=== PATIENT | male | born 1970 | race Caucasian/White ===

== ENCOUNTER 2024-07-22 17:17 | Emergency (ER) | payer OTHER, SELFPAY ==
[2024-07-22 17:19] VITALS: BP 141/93
--- NOTE | 2024-07-22 17:52 | EDRN ---
Pt states pain and nausea noted in AM mostly after a BM since Thursday. Pain 5-6/10 when has it then gets the nausea. Pain is in epigastric area. Pt also feeling pulsation in stomach when pain starts and w/ exertion gets this pulsation like when going
up set of stairs, also when washing dishes. Pt states when doing dishes today he developed cramping in his back and then pain to epigastric area w/ nausea. Pt has not been eating much for past 4 days only doing BRAT diet and does not feel pain
correlates w/ eating. Pain is described as achy and tender. Pt is feeling tenderness at this time at 5/10. Pt took zofran this am that helped w/ nausea.
[2024-07-22 17:56] VITALS: BMI 27.5
[2024-07-22 18:15] VITALS: BP 133/79
--- NOTE | 2024-07-22 18:18 | EDRN ---
Domingo PEREZ in room w/pt at this time.
[2024-07-22 18:19] LABS: Urine Albumin Negative (Neg - Trace); Urine Bilirubin Negative (Negative); Urine Character Clear (Clear); Urine Color Yellow; Urine Glucose Negative (Negative); Urine Ketone Negative (Negative); Urine Leukocyte Negative (Negative); Urine Nitrite Negative (Negative); Urine Occult Blood Negative (Negative); Urine Specific Gravity 1.015 (<1.030); Urine Urobilinogen Negative (Neg - 1+)
[2024-07-22 18:23] LABS: % Basophils 0.4 % (0-2); % Eosinophils 0.3 % (0-6); % Immature Granulocytes 0.4 % (0-0.5); % Monocytes 5.9 % (1.7-9.3); Absolute Basophils 0.1 10^3/uL (0-0.2); Absolute Immature Granulocytes 0.1 10^3/uL (0-0.05); Absolute Lymphocytes 2.6 10^3/uL (1.2-3.4); Absolute Monocytes 0.8 10^3/uL (0.1-0.6); Absolute Neutrophils 9.4 10^3/uL (1.4-6.5); Hematocrit 44.7 % (39.0-52.0); Hemoglobin 16.7 g/dL (13.0-18.0); Mean Corp Hgb Conc. 37.4 g/dL (33.0-37.0); Mean Corpuscular Volume 80.3 fL (80.0-94.0); Mean Platelet Volume 11.1 fL (7.4-10.4); Nucleated Red Blood Cells % 0 % (-); Platelet Count 315 10^3/uL (130-400); Red Blood Cell Count 5.57 10^6/uL (4.70-6.10); Red Cell Dist. Width 12.8 % (11.5-14.5); White Blood Cell Count 12.9 10^3/uL (4.8-10.8)
--- NOTE | 2024-07-22 18:28 | ED.GENMED ---
History of Present Illness
<Pierre Tubbs PA-C - Last Filed: 07/22/24 21:48>
General
Chief Complaint: Abdominal Pain
Source: patient
Exam Limitations: none
Time Seen by Provider: 07/22/24 18:08
History of Present Illness
History of Present Illness:
54-year-old male with history of hypertension and GERD presents with onset of mid abdominal pain starting 4 days ago with associated nausea and loose stool. This pain is actually made worse with exertion. He denies diaphoresis or shortness of
breath. The pain is not pleuritic. No leg swelling or calf pain. Pain does not radiate to the back. Pain is not made worse with eating. He denies any dark or bloody stools. He denies regular NSAID alcohol or caffeine use. He had discomfort in
his chest several months ago and he was evaluated a Holter monitor and echocardiogram as an outpatient and this was all negative. There is no vomiting. No other complaints at this time
Past History
<Pierre Tubbs PA-C - Last Filed: 07/22/24 21:48>
Past History
ED Past Medical History: Other (Previous skin infections and abscesses)
Social History
Tobacco: Non-smoker
Employment: Employed
Phy Exam
<BELEN Duran Last Filed: 07/22/24 21:48>
Physical Exam
Physical Exam:
General: Well-appearing male no acute respiratory distress
HEENT: Normocephalic atraumatic mucosa moist
Heart: Regular rate and rhythm no murmurs
Lungs: Clear no wheeze
Abdomen soft tender to the epigastric region no guarding rebound normal bowel sounds nondistended negative Hodges sign
Extremities: No cyanosis or edema or calf tenderness
Course
<BELEN Duran Last Filed: 07/22/24 21:48>
Orders/Labs/Results
Orders:
Orders
07/22/24 17:59
IV Insert/Care/Rem.- Treatment PRN
07/22/24 18:06
Complete Blood Count/With Diff Urgent
Comprehensive Metabolic Panel Urgent
Lipase Urgent
Monotest Urgent
Comment: ADDON
TSH Reflex To Free T4 Urgent
Comment: ADDON
Urinalysis Reflex To Culture Urgent
Date Specimen was Collected: 07/22/24
Time Specimen was Collected: 17:59
07/22/24 18:12
Add On- LAB Urgent
Comments:: tube in lab
Tests Added?: T3 reflex to T4
07/22/24 18:27
Cardiac Monitoring- Treatment ONCE
07/22/24 18:28
Electrocardiogram (*1) Urgent
Reason for Study: Abdominal Pain
CT Abd/pelvis W Iv Cont Urgent
Comment:
Reason For Exam: abdominal pain
EKG- Treatment ONCE
07/22/24 18:54
Troponin I Urgent
07/22/24 19:54
Add On- LAB Urgent
Tests Added?: monotest
Abnormal Lab Results
07/22/24
18:06
WBC 12.9 H 10^3/uL
(4.8-10.8)
MCHC 37.4 H g/dL
(33.0-37.0)
MPV 11.1 H fL
(7.4-10.4)
Abs Immat Gran (auto) 0.1 H 10^3/uL
(0-0.05)
Absolute Neuts (auto) 9.4 H 10^3/uL
(1.4-6.5)
Absolute Monos (auto) 0.8 H 10^3/uL
(0.1-0.6)
Lymphocytes % 20.0 L %
(20.5-51.1)
Chloride 95 L mmol/L
(98-107)
BUN 21 H mg/dl
(9-20)
Total Bilirubin 2.9 H mg/dl
(0.2-1.3)
07/22/24 18:06
07/22/24 18:06
Vital Signs
Initial and Last Documented VS:
Initial Vital Signs
Temp Pulse Resp BP Pulse Ox
98.1 F 84 18 141/93 100
07/22/24 17:19 07/22/24 17:19 07/22/24 17:19 07/22/24 17:19 07/22/24 17:19
Last Documented Vital Signs
Temp Pulse Resp BP Pulse Ox
98.1 F 93 15 131/86 98
07/22/24 17:19 07/22/24 20:30 07/22/24 20:30 07/22/24 20:00 07/22/24 20:30
<Jesus Pratt MD - Last Filed: 07/22/24 21:50>
Orders/Labs/Results
Orders:
Orders
07/22/24 17:59
IV Insert/Care/Rem.- Treatment PRN
07/22/24 18:06
Complete Blood Count/With Diff Urgent
Comprehensive Metabolic Panel Urgent
Lipase Urgent
Monotest Urgent
Comment: ADDON
TSH Reflex To Free T4 Urgent
Comment: ADDON
Urinalysis Reflex To Culture Urgent
Date Specimen was Collected: 07/22/24
Time Specimen was Collected: 17:59
07/22/24 18:12
Add On- LAB Urgent
Comments:: tube in lab
Tests Added?: T3 reflex to T4
07/22/24 18:27
Cardiac Monitoring- Treatment ONCE
07/22/24 18:28
Electrocardiogram (*1) Urgent
Reason for Study: Abdominal Pain
CT Abd/pelvis W Iv Cont Urgent
Comment:
Reason For Exam: abdominal pain
EKG- Treatment ONCE
07/22/24 18:54
Troponin I Urgent
07/22/24 19:54
Add On- LAB Urgent
Tests Added?: monotest
Abnormal Lab Results
07/22/24
18:06
WBC 12.9 H 10^3/uL
(4.8-10.8)
MCHC 37.4 H g/dL
(33.0-37.0)
MPV 11.1 H fL
(7.4-10.4)
Abs Immat Gran (auto) 0.1 H 10^3/uL
(0-0.05)
Absolute Neuts (auto) 9.4 H 10^3/uL
(1.4-6.5)
Absolute Monos (auto) 0.8 H 10^3/uL
(0.1-0.6)
Lymphocytes % 20.0 L %
(20.5-51.1)
Chloride 95 L mmol/L
(98-107)
BUN 21 H mg/dl
(9-20)
Total Bilirubin 2.9 H mg/dl
(0.2-1.3)
07/22/24 18:06
07/22/24 18:06
Vital Signs
Initial and Last Documented VS:
Initial Vital Signs
Temp Pulse Resp BP Pulse Ox
98.1 F 84 18 141/93 100
07/22/24 17:19 07/22/24 17:19 07/22/24 17:19 07/22/24 17:19 07/22/24 17:19
Last Documented Vital Signs
Temp Pulse Resp BP Pulse Ox
98.1 F 93 15 131/86 98
07/22/24 17:19 07/22/24 20:30 07/22/24 20:30 07/22/24 20:00 07/22/24 20:30
<Pierre Tubbs PA-C - Last Filed: 07/22/24 21:48>
MDM/Problems Addressed
Differential Diagnosis Includes:
Abdominal pain and nausea. Pain is exertional in nature but he denies actual chest pain. Will check EKG and troponin lipase pending. Labs pending otherwise with CT of abdomen. Pain is not postprandial. Biliary colic or peptic ulcer disease
could be considered
<Pierre Tubbs PA-C - Last Filed: 07/22/24 21:48>
*Critical Care Note
Total Time (30-74mins, 75-104mins- exclusive of procedures): Not Applicable
<Pierre Tubbs PA-C - Last Filed: 07/22/24 21:48>
Update Note
Update Note:
Trop undetectable. Mild nonspecific gnosis. CT reveals mild hepatosplenomegaly. Monotest negative. No other acute finding on CT. Patient remains nontoxic in assessment. Workup here essentially undetectable. Recommend Pepcid daily for the next
2 weeks and GI follow-up consider possible gastritis. Stable for discharge
ED Attending Note
<Pierre Tubbs PA-C - Last Filed: 07/22/24 21:48>
-
Portions of this chart may have been created with voice recognition software.� Occasional wrong word or��sound alike� substitutions may have occurred due to the inherent limitations of voice recognition software.
<Jesus Pratt MD - Last Filed: 07/22/24 21:50>
ED Attending Note
Patient seen and examined by attending physician: Yes
I performed the substantive portion of visit, reviewed & personally made and approve the management plan that is documented in note by myself or LISETH.: Yes
ED Attending Note:
54-year-old male with 4 to 5 days of abdominal discomfort gurgling significant gas. No postprandial issues. He does not have the symptoms directly when exerting or going up steps but feels like he has palpitations when he goes up the stairs.
Denies chest pain shortness of breath shearing pain fever chills or other complaints.
On exam patient is nontoxic in no distress. Is warm and dry. Lungs are clear and equal. Heart regular rate and rhythm. Abdomen soft with very minimal epigastric tenderness. No rebound or guarding no mass or hernia. No pulsatile masses.
Labs show a nonspecific leukocytosis. Total bilirubin is elevated but other LFTs are normal. Lipase is normal. CT unremarkable for acute findings.
Cardiac testing unremarkable
Patient is not describing ischemic issues. No risk factor for this. No postprandial issues. Highly doubt cardiac. His exertional symptoms are just racing palpitation issues. No chest pain chest pressure shortness of breath diaphoresis etc.
Nonspecific leukocytosis. Will recommend H2 db and GI follow-up.
Discharge Plan
Departure
Patient Disposition: Home (Routine Discharge)
Date of Disposition: 07/22/24
Time of Disposition: 21:47
Patient with high blood pressure during this ER visit?: No
Discharge Problem:
Abdominal pain
Instructions: Acid Reflux and GERD in Adults (DC)
Prescriptions:
No Action
No Meds [No Current Medications]
sulfamethoxazole-trimethoprim [Bactrim DS] 1 EACH tablet
1 ea PO BID
cefadroxil [Duricef] 500 MG capsule
500 mg PO BID Qty: 14 0RF
hydromorphone [Dilaudid] 2 MG tablet
2 - 4 mg PO Q4HPRN PRN (Reason: pain) Qty: 20 0RF
mupirocin [Bactroban] 22 GM ointment
1 applic TP TID Qty: 22 0RF
sulfamethoxazole-trimethoprim 1 TABLET tablet
1 tab PO BID Qty: 30 0RF
Referrals:
Teto Fields MD [Active] -
Shani Malave MD [Family Provider] -
Activity Restrictions/Additional Instructions:
Take Pepcid daily. Follow-up with GI. Return if worse otherwise
Interventions
Interventions:
*Risk Screen - Suicide Last Done: 07/22/24 17:19
*General Assessment Last Done: 07/22/24 17:19
*Neglect/Abuse Screening Last Done: 07/22/24 17:19
ED- Fall Risk Assessment Last Done: 07/22/24 17:57
*ED COVID-19 Vaccine History Last Done: 07/22/24 17:57
UZ-Sqzvyg-Zkwinjgqhd Assessment Last Done: 07/22/24 18:15
Discharge Date and Time
Print Language: SPANISH
[2024-07-22 18:38] LABS: ALT (SGPT) 33 U/L (0-50); AST (SGOT) 32 U/L (17-59); Albumin 4.8 g/dl (3.5-5.0); Alkaline Phosphatase 65 U/L (38-126); Blood Urea Nitrogen 21 mg/dl (9-20); Calcium 10.2 mg/dl (8.4-10.2); Carbon Dioxide 30 mmol/L (22-30); Chloride 95 mmol/L (98-107); Estimated Creatinine Clearance 83 ml/min; Glucose 98 mg/dl (70-99); Lipase 117 U/L (23-300); Sodium 136 mmol/L (135-145); Total Bilirubin 2.9 mg/dl (0.2-1.3); Total Protein 7.5 g/dl (6.3-8.2); eGFR > 60.00
--- NOTE | 2024-07-22 18:55 | EDRN ---
Troponin drawn and sent at this time.
[2024-07-22 19:00] VITALS: BP 125/81
[2024-07-22 19:28] LABS: Troponin I < 0.012 ng/ml
[2024-07-22 19:39] LABS: TSH Reflex To Free T4 0.89 uIU/ml (0.47-4.68)
[2024-07-22 20:00] VITALS: BP 131/86
[2024-07-22 20:14] LABS: Monotest Negative (Negative)
[2024-07-22 21:00] VITALS: BP 121/86
[2024-07-22 21:48] VITALS: BP 135/86
== END 2024-07-22 22:21 | disposition home or self-care (01) ==
LOC: EMR 17:17
PROVIDERS: Physician Assistant; EMERGENCY PHYSICIAN Emergency Medicine; FAMILY PHYSICIAN Family Medicine
DX: R10.9 Unspecified abdominal pain (principal); R11.0 Nausea; R19.7 Diarrhea, unspecified; R00.2 Palpitations; R16.2 Hepatomegaly with splenomegaly, not elsewhere classified; I10 Essential (primary) hypertension; K21.9 Gastro-esophageal reflux disease without esophagitis
CPT/HCPCS: 99285; 74177; 80053; 81003; 83690; 84443; 84484; 85025; 86308; 93005; Q9967

== ENCOUNTER 2024-08-10 14:03 | Emergency (ER) | payer OTHER, SELFPAY ==
[2024-08-10 14:05] VITALS: BP 126/83
[2024-08-10 14:25] LABS: % Basophils 0.6 % (0-2); % Eosinophils 0.3 % (0-6); % Immature Granulocytes 0.4 % (0-0.5); % Lymphocytes 17.5 % (20.5-51.1); % Monocytes 6.6 % (1.7-9.3); % Neutrophils 74.6 % (42.2-75.2); Absolute Basophils 0.1 10^3/uL (0-0.2); Absolute Immature Granulocytes 0.1 10^3/uL (0-0.05); Absolute Lymphocytes 2.1 10^3/uL (1.2-3.4); Absolute Monocytes 0.8 10^3/uL (0.1-0.6); Absolute Neutrophils 8.9 10^3/uL (1.4-6.5); Hematocrit 43.8 % (39.0-52.0); Hemoglobin 16.1 g/dL (13.0-18.0); Mean Corp Hgb Conc. 36.8 g/dL (33.0-37.0); Mean Corpuscular Hgb 29.8 pg (27.0-31.0); Mean Platelet Volume 11.4 fL (7.4-10.4); Nucleated Red Blood Cells % 0 % (-); Platelet Count 310 10^3/uL (130-400); Red Blood Cell Count 5.41 10^6/uL (4.70-6.10)
[2024-08-10 14:44] LABS: ALT (SGPT) 32 U/L (0-50); AST (SGOT) 24 U/L (17-59); Albumin 4.7 g/dl (3.5-5.0); Alkaline Phosphatase 55 U/L (38-126); Blood Urea Nitrogen 20 mg/dl (9-20); Calcium 10.1 mg/dl (8.4-10.2); Carbon Dioxide 30 mmol/L (22-30); Chloride 96 mmol/L (98-107); Glucose 104 mg/dl (70-99); Lipase 124 U/L (23-300); Potassium 3.6 mmol/L (3.5-5.1); Sodium 138 mmol/L (135-145); Total Bilirubin 2.4 mg/dl (0.2-1.3); Total Protein 7.3 g/dl (6.3-8.2); eGFR > 60.00
--- NOTE | 2024-08-10 15:48 | ED.GENMED ---
History of Present Illness
General
Chief Complaint: Abdominal Symptoms
Time Seen by Provider: 08/10/24 15:48
History of Present Illness
History of Present Illness:
HPI: Crampy epigastric pain ongoing since last ED visit about 3wks ago. No diarrhea, but describes nonbloody loose stool. Abd improves after BM. No radiation. Some dry heaves. He did have increase in Lexapro dosing recently. He also has had a
cardiac evaluation. He has been on psychiatric medications including Wellbutrin and Lexapro more recently.
EXAM:
GENERAL: Well appearing in no distress
HEENT: Moist oral mucosa
CARDIOVASCULAR: No murmurs, normal heart rate, regular rhythm, No chest wall tenderness
PULMONARY: No respiratory distress, breath sounds are clear and equal
ABDOMEN: Soft with no peritoneal signs, no tenderness
NEUROLOGIC: Excellent strength all extremities, no coordination deficits
PSYCHIATRIC: Appropriate mental status, normal insight and judgement, appears very anxious
EXTREMITIES: Nontender, no edema, moves all extremities equally
SKIN: No rash, no lesions
TIME OF INITIAL ENCOUNTER: 5:30 PM
NUMBER AND COMPLEXITY OF PROBLEMS ADDRESSED AT THE ENCOUNTER
� Chronic conditions affecting care: High blood pressure, GERD, kidney stones, anxiety/depression
� Acute Exacerbation and/or Progression of Chronic Illness: This is an acute but ongoing problem
� Differential Diagnosis includes: Dyspepsia, pancreatitis, electrolyte malady, dehydration
AMOUNT AND/OR COMPLEXITY OF DATA TO BE REVIEWED AND ANALYZED
� I performed an independent evaluation of and my interpretation is:
EKG:
CT:
X-rays:
Laboratory Studies: White count 12.0, hemoglobin 16.1, electrolytes relatively unremarkable however the total bili is 2.4, it was 2.9 3 weeks ago, normal lipase
Other: Ultrasound imaging relatively unremarkable
� Review of other/old records: I reviewed CT report and recent blood work that showed white count 12.9
� Clinical information was obtained by an independent historian: I spoke to the at bedside
� Prescriptions/Medications Considered but not given:
� Further testing considered but not performed:
RISK OF COMPLICATIONS AND/OR MORBIDITY OR MORTALITY OF PATIENT MANAGEMENT
� Social determinants of health affecting care: Lives at home
� Discussion with other providers:
� Escalation of care including admission/observation vs risk of discharge considered: The patient was also concerned of lightheadedness that she feels somewhat improved after a liter of IV fluid were given. He states that he has
a GI appointment in 1 week but asked me to contact our GI doctors to see if we get him in sooner�I did text GI front office. The patient appears comfortable at time of discharge.
Past History
Past History
ED Past Medical History: Other (Previous skin infections and abscesses)
Social History
Tobacco: Non-smoker
Employment: Employed
Phy Exam
Physical Exam
Physical Exam:
See HPI
Course
Orders/Labs/Results
Orders:
Orders
08/10/24 14:08
Electrocardiogram (*1) Urgent
Reason for Study: Abdominal Pain
EKG- Treatment ONCE
08/10/24 14:11
Complete Blood Count/With Diff Urgent
Comprehensive Metabolic Panel Urgent
Direct Bilirubin Urgent
Comment: ADDON
Lipase Urgent
08/10/24 15:49
Add On- LAB Urgent
Tests Added?: direct and indirect bili
US Abdomen Complete/Upper Urgent
Comment:
Reason For Exam: upper pain
08/10/24 15:50
0.9% Sodium Chloride 1000 ml [Nss] 1,000 ml IV BOLUS
08/10/24 16:49
H. pylori Antigen, Fecal [S] Urgent
Abnormal Lab Results
08/10/24
14:11
WBC 12.0 H 10^3/uL
(4.8-10.8)
MPV 11.4 H fL
(7.4-10.4)
Abs Immat Gran (auto) 0.1 H 10^3/uL
(0-0.05)
Absolute Neuts (auto) 8.9 H 10^3/uL
(1.4-6.5)
Absolute Monos (auto) 0.8 H 10^3/uL
(0.1-0.6)
Lymphocytes % 17.5 L %
(20.5-51.1)
Chloride 96 L mmol/L
(98-107)
Glucose 104 H mg/dl
(70-99)
Total Bilirubin 2.4 H mg/dl
(0.2-1.3)
08/10/24 14:11
08/10/24 14:11
Vital Signs
Initial and Last Documented VS:
Initial Vital Signs
Temp Pulse Resp BP Pulse Ox
98.3 F 79 18 126/83 99
08/10/24 14:05 08/10/24 14:05 08/10/24 14:05 08/10/24 14:05 08/10/24 14:05
Last Documented Vital Signs
Temp Pulse Resp BP Pulse Ox
98.3 F 77 18 119/83 100
08/10/24 14:05 08/10/24 16:04 08/10/24 16:04 08/10/24 16:04 08/10/24 16:04
*Critical Care Note
Total Time (30-74mins, 75-104mins- exclusive of procedures): Not Applicable
ED Attending Note
-
Portions of this chart may have been created with voice recognition software.� Occasional wrong word or��sound alike� substitutions may have occurred due to the inherent limitations of voice recognition software.
Discharge Plan
Departure
Prescriptions:
No Action
No Meds [No Current Medications]
sulfamethoxazole-trimethoprim [Bactrim DS] 1 EACH tablet
1 ea PO BID
cefadroxil [Duricef] 500 MG capsule
500 mg PO BID Qty: 14 0RF
hydromorphone [Dilaudid] 2 MG tablet
2 - 4 mg PO Q4HPRN PRN (Reason: pain) Qty: 20 0RF
mupirocin [Bactroban] 22 GM ointment
1 applic TP TID Qty: 22 0RF
sulfamethoxazole-trimethoprim 1 TABLET tablet
1 tab PO BID Qty: 30 0RF
Referrals:
Shani Malave MD [Family Provider] -
Interventions
Interventions:
*Risk Screen - Suicide Last Done: 08/10/24 14:05
*General Assessment Last Done: 08/10/24 14:05
*Neglect/Abuse Screening Last Done: 08/10/24 14:05
ED- Fall Risk Assessment Last Done: 08/10/24 16:08
PM-Mqkzhe-Fpqltyjnpi Assessment Last Done: 08/10/24 16:07
Discharge Date and Time
Print Language: ANGUILLAN
[2024-08-10 16:03] VITALS: BMI 26.7
[2024-08-10] MEDS: NSS 1000 IV (16:03)
[2024-08-10 16:04] VITALS: BP 119/83
[2024-08-10 16:32] LABS: Direct Bilirubin 0.3 mg/dl (0.0-0.4)
[2024-08-10 19:00] VITALS: BP 120/80
[2024-08-12 23:01] LABS: H. pylori Antigen, Fecal Negative (Negative)
== END 2024-08-10 19:21 | disposition home or self-care (01) ==
LOC: EMR 14:03
PROVIDERS: Student in an Organized Health Care Education/Training Program; EMERGENCY PHYSICIAN Emergency Medicine; FAMILY PHYSICIAN Family Medicine
DX: R10.13 Epigastric pain (principal); R19.7 Diarrhea, unspecified; R42 Dizziness and giddiness; I10 Essential (primary) hypertension; K21.9 Gastro-esophageal reflux disease without esophagitis; F41.9 Anxiety disorder, unspecified; F32.A Depression, unspecified; Z87.442 Personal history of urinary calculi
CPT/HCPCS: 99284; 96360; 76700; 80053; 82248; 83690; 85025; 87338; 93005